=== PATIENT | female | born 1975 | race Caucasian/White ===

== ENCOUNTER 2019-05-04 17:05 | Emergency (ER) | payer OTHER, MEDICAID ==
[~2019-05-04] VITALS: Ht 172.7 cm; Wt 86.2 kg
[2019-05-04 17:23] LABS: URINE BILIRUBIN NEGATIVE (Negative); URINE BLOOD 2+ (Negative); URINE COLOR YELLOW; URINE GLUCOSE-RANDOM NEGATIVE (Negative); URINE KETONES TRACE (Negative); URINE LEUKOCYTES-REFLEX NEGATIVE (Negative); URINE NITRITE-REFLEX NEGATIVE (Negative); URINE PROTEIN NEGATIVE (Negative); URINE SPECIFIC GRAVITY >= 1.030 (1.005-1.030); URINE UROBILINOGEN 0.2 E.U./dl (0.2-1.0)
[2019-05-04 17:26] LABS: URINE CLARITY HAZY
[2019-05-04 17:32] LABS: CASTS None Seen /LPF (None Seen); CRYSTALS None Seen /LPF (None Seen); MUCUS >6 Heavy strn/LPF (None Seen); SQUAMOUS >10 Many /LPF (0-3); URINE RBC 0-2 Rare /HPF (0-2); URINE WBC-REFLEX 0-5 Rare /HPF (0-5)
[2019-05-04 17:38] LABS: INFLUENZA A ANTIGEN Negative (Negative); INFLUENZA B ANTIGEN Negative (Negative)
[2019-05-04 17:55] VITALS: BP 123/78
== END 2019-05-04 17:56 | disposition home or self-care (01) ==
LOC: M.ERS 17:05
PROVIDERS: Family Medicine; Nurse Practitioner Family
DX: J06.9 Acute upper respiratory infection, unspecified (principal); Z88.0 Allergy status to penicillin; Z98.51 Tubal ligation status

== ENCOUNTER 2020-11-11 12:56 | Emergency (ER) | payer OTHER, MEDICAID ==
[~2020-11-11] VITALS: Ht 170.2 cm; Wt 79.4 kg
[2020-11-11 12:59] VITALS: BP 117/88
[2020-11-11] MEDS ORDERED: CEPHALEXIN500 MG PO (13:14)
[2020-11-11] MEDS ORDERED: CIPROFLOXIN HC2.5 M1 OTIC (13:14)
[2020-11-11] MEDS ORDERED: APAP W/CODEINE1 TA2 PO (13:14)
[2020-11-11] MEDS ORDERED: MEDROLDOSEPACK PO (13:14)
== END 2020-11-11 13:24 | disposition home or self-care (01) ==
LOC: M.ERS 12:56
DX: H66.93 Otitis media, unspecified, bilateral (principal); H60.93 Unspecified otitis externa, bilateral; Z88.0 Allergy status to penicillin; Z98.51 Tubal ligation status